=== PATIENT | female | born 1995 | race Caucasian/White ===

== ENCOUNTER 2020-12-29 13:04 | Inpatient (IN) ==
[2020-12-29] MEDS ORDERED: Buffered Lidocaine 1% SYRIN 1 ml INTRADERM ONE (14:06)
[2020-12-29] MEDS ORDERED: Lactated Ringers 1000 ml BAG 1,000 ML IV ONE ×2 (14:06→15:50)
[2020-12-29] MEDS ORDERED: OBEPIDURAL 250 ML EPIDURAL ONE (14:57)
[2020-12-29 15:00] LABS: ABS Basophils 0.1 10^3/ul (0-0.2); ABS Eosinophils 0.1 10^3/ul (0-0.6); ABS Lymphocytes 1.4 10^3/ul (1.0-4.8); ABS Monocytes 1.1 10^3/ul (0-0.8); ABS Neutrophils 14.5 10^3/ul (1.5-7.7); Eosinophil % 0.3 %; Hematocrit 37 % (35-47); Lymphocyte % 8.1 %; Mean Corpuscular HGB Conc 33 g/dL (31-36); Mean Corpuscular Hemoglobin 30 pg (27-31); Mean Corpuscular Volume 91 fL (80-97); Mean Platelet Volume 8.6 fL (7.4-10.4); Platelet Count 254 10^3/uL (150-450); Red Blood Count 4.02 10^6 /uL (3.70-4.87); Red Cell Distribution Width 14 % (10-15); White Blood Count 17.1 10^3/uL (3.5-10.8)
[2020-12-29] MEDS ORDERED: Lactated Ringers 1000 ml BAG 1,000 ML IV SCH ×4 (15:00→23:45)
[2020-12-29] MEDS ORDERED: Phenylephrine 40 mcg/mL 10mL (400mcg) SYRINGE ONE (15:47)
[2020-12-29] MEDS ORDERED: Phenylephrine 40 mcg/mL 10mL (400mcg) SYRINGE IV PUSH PRN ×2 (15:50)
[2020-12-29] MEDS ORDERED: Sodium Citrate/Citric Acid LIQ 15 ML UDC PO PRN (15:50)
[2020-12-29] MEDS ORDERED: Lactated Ringers 1000 ml BAG 500 ML IV PRN ×2 (15:50)
[2020-12-29] MEDS ORDERED: OBEPIDURAL 250 ML EPIDURAL SCH (16:00)
[2020-12-29 16:59] LABS: Urine Appearance Clear; Urine Bilirubin Negative (Negative); Urine Blood Negative (Negative); Urine Color Yellow; Urine Glucose 3+(>=500 mg/dL) (Negative); Urine Ketones 1+ (Negative); Urine Nitrite Negative (Negative); Urine Protein Negative (Negative); Urine Urobilinogen Negative (Negative)
[2020-12-29 17:17] LABS: Urine Benzodiazepine Screen None Detected (None Detect); Urine Cannabinoids Screen None Detected (None Detect); Urine Opiates Screen None Detected (None Detect)
[2020-12-29] MEDS ORDERED: Oxytocin in LR 20 UNITS/1,000 ML BAG IVPB ONE (22:51)
[2020-12-29] MEDS ORDERED: Witch Hazel PAD JAR TOPICAL PRN (23:26)
[2020-12-29] MEDS ORDERED: Glycerin ADULT 2.4 gm SUPP PR PRN (23:26)
[2020-12-29] MEDS ORDERED: Dibucaine 1% OINT 28.35 GM TUBE PR PRN (23:26)
[2020-12-29] MEDS ORDERED: Oxytocin in LR 20 UNITS/1,000 ML BAG IVPB SCH (23:45)
[2020-12-30] MEDS ORDERED: Lidocaine 1% VIAL 10 MG/ML VIAL ONE (04:22)
[2020-12-30] MEDS ORDERED: EPHEDrine (Pressors) 50 MG/ML VIAL ONE (04:22)
[2020-12-30] MEDS ORDERED: Methylergonovine 0.2 mg AMPULE 1 ml AMP ONE (04:22)
[2020-12-30] MEDS ORDERED: Oxytocin 10 UNITS/ML 1 ML VIAL ONE (04:32)
[2020-12-30 08:57] LABS: Hematocrit 30 % (35-47); Hemoglobin 10.1 g/dL (12.0-16.0); Mean Corpuscular HGB Conc 33 g/dL (31-36); Mean Corpuscular Hemoglobin 30 pg (27-31); Mean Corpuscular Volume 91 fL (80-97); Mean Platelet Volume 8.4 fL (7.4-10.4); Platelet Count 215 10^3/uL (150-450); Red Blood Count 3.33 10^6 /uL (3.70-4.87); Red Cell Distribution Width 13 % (10-15); White Blood Count 22.2 10^3/uL (3.5-10.8)
[2020-12-30 11:11] LABS: ABS Eosinophils 0.1 10^3/ul (0-0.6); ABS Lymphocytes 2.5 10^3/ul (1.0-4.8); ABS Monocytes 2.1 10^3/ul (0-0.8); ABS Neutrophils 17.4 10^3/ul (1.5-7.7); Eosinophil % 0.4 %; Lymphocyte % 11.5 %
[2020-12-31 09:36] VITALS: BP 122/64
== END 2020-12-31 13:16 | disposition home or self-care (01) | DRG 560 ==
LOC: MCHOBOUT 13:04 → MCHOB 14:05
PROVIDERS: ADMIT Obstetrics & Gynecology; ATTEND Obstetrics & Gynecology

== ENCOUNTER 2024-08-06 02:43 | Inpatient (IN) ==
[2024-08-06 04:11] LABS: ABS Basophils 0.1 10^3/uL (0.0-0.1); ABS Eosinophils 0.2 10^3/uL (0.0-0.5); ABS Neutrophils 7.3 10^3/uL (1.5-7.6); Hematocrit 32.1 % (35-45); Hemoglobin 10.7 g/dL (11.5-14.3); Lymphocyte % 25.9 %; Mean Corpuscular Hemoglobin 28.8 pg (27-33); Mean Corpuscular Hgb Conc 33.3 g/dL (31-36); Mean Corpuscular Volume 86.4 fL (80-97); Mean Platelet Volume 8.4 fL (7.5-11.2); Platelet Count 247 10^3/uL (150-450); Red Blood Count 3.71 10^6/uL (3.63-4.92); Red Cell Distribution Width 14.2 % (12-17); White Blood Count 11.6 10^3/uL (3.8-11.8)
[2024-08-06] MEDS: Lactated Ringers 1000 ml BAG 1,000 ML IV ONE ×2 (04:15→05:30)
[2024-08-06] MEDS ORDERED: Lidocaine 1% VIAL 10 MG/ML 30 ML VIAL INJ PRN (04:31)
[2024-08-06 04:34] LABS: Urine Benzodiazepine Screen None Detected (None Detect); Urine Cannabinoids Screen None Detected (None Detect); Urine Opiates Screen None Detected (None Detect)
[2024-08-06] MEDS: OBEPIDURAL (200 ML) 200 ML EPIDURAL ONE (05:04)
[2024-08-06] MEDS ORDERED: Phenylephrine 40 mcg/mL 10mL (400mcg) SYRINGE IV PUSH PRN ×2 (05:21)
[2024-08-06] MEDS ORDERED: Sodium Citrate/Citric Acid LIQ 15 ML UDC PO PRN (05:21)
[2024-08-06 06:40] LABS: Urine Appearance Clear; Urine Bilirubin Negative (Negative); Urine Blood 1+ (Negative); Urine Color Yellow; Urine Glucose 1+ (>=70 mg/dL) (Negative); Urine Ketones 3+ (Negative); Urine Nitrite Negative (Negative); Urine Protein Trace (Negative); Urine Specific Gravity 1.021 (1.002-1.030); Urine Urobilinogen Negative (Negative)
[2024-08-06 07:33] LABS: Urine Bacteria Absent /HPF (Absent); Urine Red Blood Cell 3+(>10/hpf) /HPF (0-Trace); Urine Squamous Epithelial Cell Present /HPF (Absent); Urine White Blood Cell Trace(0-5/hpf) /HPF (0-Trace)
[2024-08-06] MEDS: Oxytocin in LR 20,000 MILLI.UNIT/1,000 ML BAG IV SCH (13:25)
[2024-08-06] MEDS ORDERED: Glycerin ADULT 2.4 gm SUPP PR PRN (13:51)
[2024-08-06] MEDS ORDERED: Lactated Ringers 1000 ml BAG 1,000 ML IV SCH (14:00)
[2024-08-06] MEDS: Dibucaine 1% OINT 28.35 GM TUBE PR PRN (14:15)
[2024-08-06] MEDS: Witch Hazel PAD JAR TOPICAL PRN (14:15)
[2024-08-06] MEDS: Oxytocin in LR 20,000 MILLI.UNIT/1,000 ML BAG IV ONE (19:48)
[2024-08-06] MEDS: Phenylephrine 40 mcg/mL 10mL (400mcg) SYRINGE ONE (19:48)
[2024-08-06] MEDS: Lidocaine 1.5% EPI 1:200,000 30 ML SDV ONE (19:48)
[2024-08-06] MEDS: OBEPIDURAL (200 ML) 200 ML EPIDURAL SCH (19:49)
[2024-08-06] MEDS: Buffered Lidocaine 1% SYRIN 1 ml INTRADERM ONE (19:49)
[2024-08-06] MEDS: Lactated Ringers 1000 ml BAG 1,000 ML IV SCH ×2 (19:49)
[2024-08-07 07:51] LABS: ABS Eosinophils 0.1 10^3/uL (0.0-0.5); ABS Lymphocytes 2.2 10^3/uL (1.0-4.8); ABS Monocytes 1.3 10^3/uL (0.0-0.9); ABS Nucleated RBC 0.01 10^3/ul; Eosinophil % 0.7 %; Hematocrit 28.2 % (35-45); Hemoglobin 9.6 g/dL (11.5-14.3); Lymphocyte % 14.1 %; Mean Corpuscular Hemoglobin 29.5 pg (27-33); Mean Corpuscular Volume 86.7 fL (80-97); Mean Platelet Volume 8.4 fL (7.5-11.2); Platelet Count 213 10^3/uL (150-450); Red Blood Count 3.25 10^6/uL (3.63-4.92); Red Cell Distribution Width 14.2 % (12-17); White Blood Count 15.6 10^3/uL (3.8-11.8)
[2024-08-07 12:24] VITALS: BP 119/78
== END 2024-08-07 15:02 | disposition home or self-care (01) | DRG 560 ==
LOC: MCHOBOUT 02:43 → MCHOB 04:18
PROVIDERS: ADMIT Obstetrics & Gynecology; ATTEND Obstetrics & Gynecology